=== PATIENT | male | born 1985 | race Two or more races ===

== ENCOUNTER 2016-12-06 21:20 | Emergency (ER) | payer SELFPAY ==
[~2016-12-06] VITALS: Ht 185.4 cm; Wt 102.1 kg
[2016-12-06 21:30] VITALS: BP 126/91
[2016-12-06] MEDS ORDERED: TETRACAINE HCL 0.5% OPTH(EYE) SOLN 4ML LEFTEYE ONE (22:45)
[2016-12-06] MEDS ORDERED: GENTAMICIN OPTH sol 0.3% 5ml LEFTEYE ONE (22:45)
[2016-12-06] MEDS ORDERED: FLUORESCEIN SOD 1 MG TEST STRIP LEFTEYE ONE (23:00)
== END 2016-12-06 23:41 | disposition home or self-care (01) ==
LOC: ER 21:24
DX: H10.9 Unspecified conjunctivitis (principal); F12.10 Cannabis abuse, uncomplicated

== ENCOUNTER 2017-09-04 10:05 | Emergency (ER) | payer SELFPAY ==
[~2017-09-04] VITALS: Ht 185.4 cm; Wt 99.8 kg
[2017-09-04 10:09] VITALS: BP 131/88
== END 2017-09-04 11:18 ==
LOC: ER 10:05
DX: S01.03XA Puncture wound without foreign body of scalp, initial encounter (principal); S40.012A Contusion of left shoulder, initial encounter; S60.512A Abrasion of left hand, initial encounter; S60.511A Abrasion of right hand, initial encounter; V43.52XA Car driver injured in collision with other type car in traffic accident, initial encounter; Y93.89 Activity, other specified; Y99.8 Other external cause status; Y92.89 Other specified places as the place of occurrence of the external cause
CPT/HCPCS: 70450